=== PATIENT | male | born 1965 | race Caucasian/White ===

== ENCOUNTER → 2018-06-05 | Outpatient (CLI) | payer SELFPAY ==
[~2018-06-05] MED LIST: ASPIRIN EC81 M1; CARVEDILOL6.25 MG; CARVEDILOL6.25 MG PO; CIPROFLOXACIN500 M1 PO; GREEN TEA1 EACH PO; HYDROCODON-ACE1 EACH PO; IBUPROFEN 600600 M1 PO; IBUPROFEN 800800 MG PO; INVANZ 1GM/NS 101 GM IV; LISINOPRIL5 MG PO; LORTAB PO; MEDROLDOSEPACK PO; NAPROSYN500 MG PO; NOHOMEMEDICATIONS; NORCO 5-325 TA1 EACH PO; PERCOCET 5-3251 EACH PO; PREDNISONE 5 MG5 M1; ULTRAM 50MG TAB50 MG PO; VICODIN 5-5001 EACH PO; ZOFRAN4 MG PO
== END ==
LOC: M.RAD 13:03
DX: M19.072 Primary osteoarthritis, left ankle and foot (principal); M19.071 Primary osteoarthritis, right ankle and foot; M79.89 Other specified soft tissue disorders; L53.9 Erythematous condition, unspecified; M43.17 Spondylolisthesis, lumbosacral region; G89.29 Other chronic pain

== ENCOUNTER → 2018-06-07 | Outpatient (CLI) | payer SELFPAY | LOC: M.MRI 06:56 | DX: M54.5 Low back pain (principal); M25.572 Pain in left ankle and joints of left foot; M25.472 Effusion, left ankle; M25.571 Pain in right ankle and joints of right foot; M25.471 Effusion, right ankle; M79.675 Pain in left toe(s); M79.89 Other specified soft tissue disorders; M79.674 Pain in right toe(s); M19.90 Unspecified osteoarthritis, unspecified site; M43.17 Spondylolisthesis, lumbosacral region; G89.29 Other chronic pain; I10 Essential (primary) hypertension ==

== ENCOUNTER → 2018-07-09 | Outpatient (CLI) | payer SELFPAY | LOC: M.ULTRA 10:43 | DX: N43.3 Hydrocele, unspecified (principal); N30.01 Acute cystitis with hematuria; Z87.440 Personal history of urinary (tract) infections ==

== ENCOUNTER → 2018-08-14 | Outpatient (CLI) | payer SELFPAY | LOC: M.CT 12:52 | DX: N20.0 Calculus of kidney (principal); N26.1 Atrophy of kidney (terminal); N39.0 Urinary tract infection, site not specified ==

== ENCOUNTER → 2018-12-06 | Outpatient (CLI) | payer MEDICAID, SELFPAY | LOC: M.RAD 13:07 | DX: M19.072 Primary osteoarthritis, left ankle and foot (principal); M19.071 Primary osteoarthritis, right ankle and foot; Z88.8 Allergy status to other drugs, medicaments and biological substances ==

== ENCOUNTER 2021-07-26 18:57 | Inpatient (IN) | payer OTHER, MEDICAID ==
[~2021-07-26] VITALS: Ht 180.3 cm; Wt 119.8 kg
[2021-07-26 18:58] VITALS: BP 129/74
[2021-07-26] MEDS ORDERED: PROTONIX 20 MG20 MG PO (19:05)
[2021-07-26] MEDS ORDERED: MIDODRINE HCL 55 M1 PO (19:05)
[2021-07-26] MEDS ORDERED: METRONIDAZOLE500 M4 PO (19:05)
[2021-07-26 19:48] LABS: HEMATOCRIT 34.4 % (42.0-52.0); HEMOGLOBIN 11.1 gm/dL (14.0-18.0); MCH 31.9 pg (26.0-34.0); MCHC 32.4 g/dL (28.0-37.0); MCV 98.3 fL (80.0-100.0); MPV 7.1 fl. (7.2-11.1); NUCLEATED RBCS 0 /100WBC; PLATELET COUNT* 238 thou/uL (150-400); RDW-CV 16.4 % (10.5-14.5); WBC 17.5 thou/uL (4.0-11.0)
[2021-07-26 19:57] LABS: CALCIUM 8.9 mg/dL (8.5-10.1); CREATININE 2.3 mg/dL (0.6-1.3); POTASSIUM 3.9 mmol/L (3.5-5.1)
[2021-07-26 20:01] LABS: ALBUMIN 2.4 g/dL (3.4-5.0); TOTAL BILIRUBIN 0.9 mg/dL (<0.1-1.0)
[2021-07-26 20:29] LABS: ABSOLUTE LYMPHOCYTES 0.5 thou/uL (0.8-5.3); ABSOLUTE MONOCYTES 0.9 thou/uL (0.0-1.2); ABSOLUTE NEUTROPHILS 16.1 thou/uL (1.6-8.1); PLATELET ESTIMATE ADEQUATE
[2021-07-26 20:31] LABS: LARGE PLATELETS OCCASIONAL
[2021-07-26 21:27] LABS: URINE BILIRUBIN NEGATIVE (Negative); URINE BLOOD 3+ (Negative); URINE CLARITY CLOUDY; URINE COLOR YELLOW; URINE GLUCOSE-RANDOM NEGATIVE (Negative); URINE KETONES NEGATIVE (Negative); URINE NITRITE-REFLEX NEGATIVE (Negative); URINE PROTEIN 3+ (Negative); URINE UROBILINOGEN 0.2 E.U./dl (0.2-1.0)
[2021-07-26 21:31] LABS: SQUAMOUS 4-10 Moderate /LPF (0-3); URINE LEUKOCYTES-REFLEX 3+ (Negative)
[2021-07-26 21:32] LABS: AMORPHOUS PHOSPHATES Moderate /LPF (None Seen); BACTERIA-REFLEX >30 Many /HPF (None Seen); CASTS None Seen /LPF (None Seen); URINE RBC 3-10 Few /HPF (0-2)
[2021-07-26 21:33] LABS: CRYSTALS None Seen /LPF (None Seen)
[2021-07-27] VITALS (18 sets, daily range): BP systolic 87–127; BP diastolic 40–79
[2021-07-27 08:27] LABS: ABSOLUTE LYMPHOCYTES 0.3 thou/uL (0.8-5.3); ABSOLUTE MONOCYTES 0.5 thou/uL (0.0-1.2); ABSOLUTE NEUTROPHILS 18.5 thou/uL (1.6-8.1); BASOPHILS 0.2 %; HEMATOCRIT 30.6 % (42.0-52.0); HEMOGLOBIN 9.4 gm/dL (14.0-18.0); LYMPHOCYTES 1.7 %; MCH 31.2 pg (26.0-34.0); MCHC 30.7 g/dL (28.0-37.0); MCV 101.6 fL (80.0-100.0); MONOCYTES 2.3 %; MPV 7.4 fl. (7.2-11.1); NUCLEATED RBCS 0 /100WBC; PLATELET COUNT* 207 thou/uL (150-400); POLYS 95.8 %; RBC 3.01 mil/uL (4.50-6.00); RDW-CV 17.1 % (10.5-14.5); WBC 19.3 thou/uL (4.0-11.0)
[2021-07-27 09:16] LABS: INR 1.2
--- NOTE | 2021-07-27 09:37 | EKG ---
[place] [address] ELECTROCARDIOGRAM REPORT Name: KADEN PINEDA V Room: [place] [address] ADM IN ..#: [id number] Admission: 07/26/21 Attend Phys: Sagrario Clayton Discharge: Date of : 65 Date of Service: 07/26/21 1900 Report #: [id number] THIS REPORT FOR: //name// [facility] ED Test Date: 2021-07-26 Test Time: 19:00:13 Pat Name: KADEN PINEDA Department: Room: [facility] Gender: M String Studies Director: [place] : 1965 Requested By: Gudelia Mays Order Number: [id number] MD: Israel Vazquez Measurements Intervals [place] Rate: 121 P: -30 AR: 120 QRS: -39 QRSD: 73 T: 132 QT: 348 QTc: 494 Interpretive Statements Sinus tachycardia ST segment depression Abnormal R-wave progression, early transition Inferior infarct, old Baseline wander in lead(s) V3 Compared to ECG 01/09/2013 22:23:38 Myocardial infarct finding now present Sinus rhythm no longer present Left-axis deviation no longer present st segment depression now noted Electronically Signed On 07-27-2021 9:37:34 VENEER [employer]AP[employer] by Israel Vazquez [email or web address] <ELECTRONICALLY SIGNED> By: Israel Vazquez MD, [facility] 07/27/21 0937 99 99 Israel Vazquez MD, [facility] /EPI
[2021-07-27 10:01] LABS: CREATININE 2.2 mg/dL (0.6-1.3); POTASSIUM 4.6 mmol/L (3.5-5.1); TOTAL BILIRUBIN 0.5 mg/dL (<0.1-1.0); TOTAL PROTEIN 5.9 g/dL (6.4-8.2)
--- NOTE | 2021-07-27 16:53 | NUR ---
PT ADMITTED TO ICU FROOM IR. PT HAS BILAT NEPHROSTOMY DRAINS WITH TH RIGHT DRAINING BLOODY URINE. PT IS ON OXYGEN VIA NC. PT ORIENTED TO ROOM AND UNIT, BED LOW AND LOCKED, SIDE RAILS UP X3, CALL LIGHT IN REACH. MOTHER AT BEDSIDE. WILL CONTINUE TO ASSESS.
--- NOTE | 2021-07-27 19:03 | NUR ---
BEDSIDE REPORT GIVEN TO WILL RN.
[2021-07-28] VITALS (45 sets, daily range): BP systolic 73–113; BP diastolic 42–72
[2021-07-28 03:45] LABS: ABSOLUTE BASOPHILS 0.1 thou/uL (0.0-0.2); ABSOLUTE LYMPHOCYTES 0.3 thou/uL (0.8-5.3); ABSOLUTE MONOCYTES 0.3 thou/uL (0.0-1.2); ABSOLUTE NEUTROPHILS 13.2 thou/uL (1.6-8.1); BASOPHILS 0.4 %; EOSINOPHILS 0.1 %; HEMATOCRIT 25.9 % (42.0-52.0); HEMOGLOBIN 7.9 gm/dL (14.0-18.0); LYMPHOCYTES 2.2 %; MCH 31.7 pg (26.0-34.0); MCHC 30.6 g/dL (28.0-37.0); MCV 103.5 fL (80.0-100.0); MONOCYTES 2.2 %; MPV 7.3 fl. (7.2-11.1); NUCLEATED RBCS 0 /100WBC; PLATELET COUNT* 135 thou/uL (150-400); POLYS 95.1 %; RDW-CV 17.4 % (10.5-14.5); WBC 13.9 thou/uL (4.0-11.0)
[2021-07-28 03:57] LABS: CALCIUM 7.6 mg/dL (8.5-10.1); CREATININE 2.8 mg/dL (0.6-1.3); POTASSIUM 4.7 mmol/L (3.5-5.1)
--- NOTE | 2021-07-28 17:09 | NUR ---
Met with patient at bedside and introduced role of CM. Prior to admission, patient was living at home in a house with his mother and brother. Stairs in the home but patient verbalizes no difficulty using stairs, however patient states that sometimes when his back hurts really bad, using stairs can be challenging. Patient states he has a walker, but rarely uses it. Only uses it when needed. Patient was independent with ADLS and was driving. No hx of O2, bipap/cpap, HH, SNF, dialysis, infusion therapy or BHS. Hx of ARU at [place]. Hx of bladder CA. PCP is Rosy Barrow. No DPOA. Patient states that he and his mom are disucussing DPOA and wishes to not complete it at this time. Patient states he feels safe to return home. Plan of care: Currently on 2L NC. S/P Nephroureteral stent 07/27 with nephrostomy tubes. Continue abx. Per physician, patient is tele status and could downgrade to tele. Therapies will need to be ordered for dc dispo. Paitent open to HH if needed. CM to continue to follow
[2021-07-29 03:22] VITALS: BP 80/52
--- NOTE | 2021-07-29 03:44 | NUR ---
PT ALERT ORIENTED. R AND L NEPHROSOTOMY DRAINING ADEQUATE AMOUNTS. UROSTOMY WITH LESS OP THAN NEPHROSOMY. HYDROCODONE FOR PAIN. PUBLICATION DIRECTOR TRACING SR PVC. L CHEST PORT IN PLACE NOT ACCESSED.
[2021-07-29 06:18] LABS: ABSOLUTE EOSINOPHILS 0.1 thou/uL (0.0-0.7); ABSOLUTE LYMPHOCYTES 0.4 thou/uL (0.8-5.3); ABSOLUTE MONOCYTES 0.2 thou/uL (0.0-1.2); ABSOLUTE NEUTROPHILS 8.5 thou/uL (1.6-8.1); BASOPHILS 0.4 %; EOSINOPHILS 0.9 %; HEMATOCRIT 25.3 % (42.0-52.0); HEMOGLOBIN 8.1 gm/dL (14.0-18.0); LYMPHOCYTES 4.4 %; MCH 32.3 pg (26.0-34.0); MCV 100.8 fL (80.0-100.0); MONOCYTES 2.6 %; MPV 7.3 fl. (7.2-11.1); NUCLEATED RBCS 0 /100WBC; PLATELET COUNT* 117 thou/uL (150-400); POLYS 91.7 %; RBC 2.51 mil/uL (4.50-6.00); WBC 9.2 thou/uL (4.0-11.0)
[2021-07-29 06:30] VITALS: BP 82/52
[2021-07-29 06:31] LABS: ALBUMIN 1.5 g/dL (3.4-5.0); CALCIUM 7.8 mg/dL (8.5-10.1); POTASSIUM 4.1 mmol/L (3.5-5.1); TOTAL BILIRUBIN 0.3 mg/dL (<0.1-1.0); TOTAL PROTEIN 5.2 g/dL (6.4-8.2)
[2021-07-29 08:30] VITALS: BP 118/61
[2021-07-29 16:00] VITALS: BP 122/65
--- NOTE | 2021-07-29 16:41 | NUR ---
PLAN OF CARE: PHYSICIAN INFORMS OF PLAN TO INITIATE TRANSFER TO [facility] FOR THE PT, PT SEES A UROLOGIST AT THAT FACILITY. PT'S UROLOGIST: DR ALY NGUYEN. CM SPOKE TO [facility] [place] TEAM (BILL) TO INITIATE TX. CM INFORMED BILL TO F/U WITH RN IN-CHARGE OF THE PT OR [facility] TO INFORM OF ABILITY TO ACCEPT OR DECLINE PT, AND CM PROVIDED CONTACT INFO FOR BOTH. CM WILL REMAIN AVAILABLE TO ASSIST AND FOLLOW NEEDED. [employer] [facility] [place] PHONE: [phone] FAX: [phone]
[2021-07-29 20:00] VITALS: BP 100/59
[2021-07-30 01:17] VITALS: BP 90/52
--- NOTE | 2021-07-30 03:19 | NUR ---
PT LETHARGIC AROUSES EASILY. TURN Q 2 HRS. NEPHROSTOMY TUBES LEFT DRAINING RED, RIGHT DRAINING PURULENT PINK. ILLIOSTOMY DRAINING RED. O2 AT 2 LITERS. OCCASSIONALY SNORES. HYDROCODONE GIVEN FOR BACK PAIN. NS AT 80MLS/HR.
[2021-07-30 06:24] VITALS: BP 90/52
[2021-07-30 08:00] VITALS: BP 104/50
[2021-07-30 11:39] LABS: ABSOLUTE EOSINOPHILS 0.1 thou/uL (0.0-0.7); ABSOLUTE LYMPHOCYTES 0.4 thou/uL (0.8-5.3); ABSOLUTE MONOCYTES 0.3 thou/uL (0.0-1.2); ABSOLUTE NEUTROPHILS 4.2 thou/uL (1.6-8.1); BASOPHILS 0.3 %; EOSINOPHILS 1.5 %; LYMPHOCYTES 7.4 %; MCH 32.1 pg (26.0-34.0); MCV 100.3 fL (80.0-100.0); MONOCYTES 6.7 %; MPV 8.2 fl. (7.2-11.1); NUCLEATED RBCS 0 /100WBC; PLATELET COUNT* 118 thou/uL (150-400); POLYS 84.1 %; RBC 2.49 mil/uL (4.50-6.00); RDW-CV 16.9 % (10.5-14.5)
[2021-07-30 12:00] VITALS: BP 96/39
[2021-07-30 12:00] LABS: ALBUMIN 1.4 g/dL (3.4-5.0); CALCIUM 7.8 mg/dL (8.5-10.1); CREATININE 2.8 mg/dL (0.6-1.3); POTASSIUM 4.2 mmol/L (3.5-5.1); TOTAL BILIRUBIN 0.2 mg/dL (<0.1-1.0); TOTAL PROTEIN 5.1 g/dL (6.4-8.2)
[2021-07-30 16:00] VITALS: BP 89/49
--- NOTE | 2021-07-30 16:54 | NUR ---
NO ACUTE CHANGES THIS SHIFT. CONTINUE PLAN OF CARE.
--- NOTE | 2021-07-30 18:32 | NUR ---
THIS RN CALLED [facility] TRANSFER TEAM. STATED THEY WERE NOT ABLE TO GET AHOLD OF PHYSICIAN (HOSPITALIST) YESTERDAY AND THUS TRANSFER PROCESS HAS NOT BEEN SENT TO UTILIZATION REVIEW YET. UTILIZATION REVIEW NEEDS: H&P PROGRESS NOTES CONSULT NOTES ALL TO BE SENT TOMORROW FOR REVIEW Sunday BY UTILIZATIO REVIEW AT [facility].
[2021-07-31 01:46] VITALS: BP 122/57
[2021-07-31 04:50] LABS: ABSOLUTE EOSINOPHILS 0.1 thou/uL (0.0-0.7); ABSOLUTE LYMPHOCYTES 0.6 thou/uL (0.8-5.3); ABSOLUTE MONOCYTES 0.4 thou/uL (0.0-1.2); ABSOLUTE NEUTROPHILS 3.3 thou/uL (1.6-8.1); BASOPHILS 0.5 %; EOSINOPHILS 1.6 %; HEMATOCRIT 24.6 % (42.0-52.0); HEMOGLOBIN 7.8 gm/dL (14.0-18.0); LYMPHOCYTES 13.3 %; MCH 31.7 pg (26.0-34.0); MCHC 31.9 g/dL (28.0-37.0); MCV 99.4 fL (80.0-100.0); MPV 8.1 fl. (7.2-11.1); NUCLEATED RBCS 0 /100WBC; PLATELET COUNT* 117 thou/uL (150-400); POLYS 74.6 %; RBC 2.47 mil/uL (4.50-6.00); RDW-CV 16.4 % (10.5-14.5); WBC 4.4 thou/uL (4.0-11.0)
[2021-07-31 04:57] LABS: PREALBUMIN 9.6 mg/dL (18.0-35.7)
[2021-07-31 05:07] LABS: ALBUMIN 1.4 g/dL (3.4-5.0); CALCIUM 8.1 mg/dL (8.5-10.1); CREATININE 2.4 mg/dL (0.6-1.3); POTASSIUM 4.1 mmol/L (3.5-5.1); TOTAL BILIRUBIN 0.2 mg/dL (<0.1-1.0)
[2021-07-31 06:28] VITALS: BP 103/68
--- NOTE | 2021-07-31 07:20 | NUR ---
CHANGE OF SHIFT REPORT GIVEN PATIENT SEEN AT BEDSIDE, IN BED ASLEEP ASSUMED PATIENT CARE
[2021-07-31 08:00] VITALS: BP 124/62
[2021-07-31 12:00] VITALS: BP 109/71
[2021-07-31 16:00] VITALS: BP 111/68
[2021-07-31 20:00] VITALS: BP 124/68
[2021-08-01 00:01] VITALS: BP 135/75
[2021-08-01 03:47] VITALS: BP 127/76
[2021-08-01 08:38] VITALS: BP 129/80
[2021-08-01 12:00] VITALS: BP 115/75
[2021-08-01 15:00] LABS: ABSOLUTE EOSINOPHILS 0.1 thou/uL (0.0-0.7); ABSOLUTE LYMPHOCYTES 0.6 thou/uL (0.8-5.3); ABSOLUTE MONOCYTES 0.5 thou/uL (0.0-1.2); ABSOLUTE NEUTROPHILS 3.5 thou/uL (1.6-8.1); BASOPHILS 0.4 %; EOSINOPHILS 1.4 %; HEMATOCRIT 27.5 % (42.0-52.0); HEMOGLOBIN 8.9 gm/dL (14.0-18.0); LYMPHOCYTES 13.6 %; MCH 31.6 pg (26.0-34.0); MCHC 32.3 g/dL (28.0-37.0); MCV 97.8 fL (80.0-100.0); MONOCYTES 10.8 %; MPV 8.3 fl. (7.2-11.1); NUCLEATED RBCS 0 /100WBC; PLATELET COUNT* 146 thou/uL (150-400); POLYS 73.8 %; RBC 2.81 mil/uL (4.50-6.00); RDW-CV 16.6 % (10.5-14.5); WBC 4.7 thou/uL (4.0-11.0)
[2021-08-01 15:05] LABS: CALCIUM 8.1 mg/dL (8.5-10.1); POTASSIUM 3.7 mmol/L (3.5-5.1)
[2021-08-01 15:10] LABS: ALBUMIN 1.7 g/dL (3.4-5.0); TOTAL BILIRUBIN 0.4 mg/dL (<0.1-1.0); TOTAL PROTEIN 5.5 g/dL (6.4-8.2)
[2021-08-01 16:00] VITALS: BP 126/81
--- NOTE | 2021-08-01 17:02 | NUR ---
PLAN OF CARE: PHYSICIAN INFORMS OF PLAN FOR THE PT TO D/C TO SNF PENDING ACCEPTANCE AND INSURANCE AUTH. PT INFORMS OF CHOICE OF [facility] FOR SNF. CM ATTEMPTED TO CONTACT [facility] TO DISCUSS SNF AND ABILITY TO ACCEPT PT AT D/C, I NEED TO CONFIRM IF [facility] HAS SNF ABILITY VS ACUTE REHAB OR LTC. CM NEEDS TO CLARIFY THIS WITH [facility]. CM WILL REMAIN AVAILABLE TO ASSIST AND FOLLOW NEEDED.
[2021-08-01 20:44] VITALS: BP 138/70
[2021-08-02 01:49] VITALS: BP 119/70
[2021-08-02 04:47] LABS: ABSOLUTE EOSINOPHILS 0.1 thou/uL (0.0-0.7); ABSOLUTE LYMPHOCYTES 0.8 thou/uL (0.8-5.3); ABSOLUTE MONOCYTES 0.5 thou/uL (0.0-1.2); ABSOLUTE NEUTROPHILS 2.8 thou/uL (1.6-8.1); BASOPHILS 0.4 %; HEMOGLOBIN 8.8 gm/dL (14.0-18.0); LYMPHOCYTES 18.6 %; MCHC 33.6 g/dL (28.0-37.0); MCV 98.1 fL (80.0-100.0); MONOCYTES 12.3 %; MPV 8.3 fl. (7.2-11.1); NUCLEATED RBCS 0 /100WBC; PLATELET COUNT* 139 thou/uL (150-400); POLYS 66.7 %; RBC 2.65 mil/uL (4.50-6.00); RDW-CV 16.6 % (10.5-14.5); WBC 4.3 thou/uL (4.0-11.0)
[2021-08-02 05:10] LABS: ALBUMIN 1.7 g/dL (3.4-5.0); CALCIUM 8.4 mg/dL (8.5-10.1); CREATININE 1.8 mg/dL (0.6-1.3); POTASSIUM 3.5 mmol/L (3.5-5.1); TOTAL BILIRUBIN 0.4 mg/dL (<0.1-1.0); TOTAL PROTEIN 5.5 g/dL (6.4-8.2)
[2021-08-02 06:11] VITALS: BP 131/85
--- NOTE | 2021-08-02 07:01 | NUR ---
PT IS ABLE TO COMMUNICATE HIS NEEDS TO STAFF WITH MINOR DIFFICULTY; HE CAN BE DROWSY AND A LITTLE CONFUSED AT TIMES. CURRENT PAIN MEDICATION REGIMEN HAS BEEN ADEQUATE FOR CONTROLLING HIS PAIN UP TO THIS TIME. CONTACT [facility] FOR [facility] MAINTIANED. R+L NEPHROSTOMY TUBES AND RT ABD UROSTOMY PATENT UP TO THIS TIME.
--- NOTE | 2021-08-02 07:05 | NUR ---
CHANGE OF SHIFT REPORT GIVEN PATIENT SEEN AT BEDSIDE, IN BED RESTING ASSUMED PATIENT CARE
[2021-08-02 08:00] VITALS: BP 134/78
[2021-08-02 11:41] VITALS: BP 109/65
--- NOTE | 2021-08-02 13:38 | NUR ---
PLAN OF CARE: PHYSICIAN INFORMS THAT THE PT IS MEDICALLY STABLE FOR D/C TO SNF. PT INITIALLY CHOSE [facility] SNF. HOWEVER AT THIS TIME [facility] HAVE BED AVAILABILITY. CM PROVIDED PT WITH SNF LIST. PT CHOSE [facility] SN[facility]. THEY ALSO DO NOT HAVE BED AVAILABILITY AT THIS TIME, BUT OFFERED TO SEND REFERRAL TO [facility]. CM TO SPEAK TO PT TO DISCUSS THIS. CM WILL REMAIN AVAILABLE TO ASSIST AND FOLLOW NEEDED.
[2021-08-02 16:00] VITALS: BP 112/77
[2021-08-02 20:39] VITALS: BP 126/60
[2021-08-03] VITALS: BP 107/62
[2021-08-03 04:00] VITALS: BP 119/72
[2021-08-03 05:37] LABS: CALCIUM 8.1 mg/dL (8.5-10.1); CREATININE 1.7 mg/dL (0.6-1.3); MAGNESIUM 1.8 mg/dL (1.8-2.4); POTASSIUM 3.5 mmol/L (3.5-5.1)
--- NOTE | 2021-08-03 07:56 | NUR ---
PT IS ABLE TO COMMUNICATE HIS NEEDS TO STAFF WITH MINOR DIFFICULTY; HE IS [id number]-[id number] AND LETHARGIC AT TIMES. CURRENT PAIN MEDICATION REGIMEN HAS BEEN ADEQUATE FOR CONTROLLING HIS PAIN UP TO 0700 THIS MORNING. UROSTOMY AND BOTH NEPHROSTOMY TUBES HAVE BEEN PATENT UP TO 0700 TODAY. POSSIBLE DISCHARGE TO SNF SOON.
[2021-08-03 12:33] VITALS: BP 105/69
[2021-08-03] MEDS ORDERED: HYDROCODON-ACE1 EAC7 PO (15:18)
--- NOTE | 2021-08-03 17:22 | NUR ---
PLAN FOR THE PT TO D/C TO SNF AT [facility] TODAY. TRANSPORT ARRANGED. PT AND HIS MOTHER IN AGREEMENT WITH THE PLAN. RN TO CALL REPORT. CM WILL REMAIN AVAILABLE TO ASSIST AND FOLLOW NEEDED. [facility] PHONE: [phone]
== END 2021-08-03 15:27 | DRG 871 ==
LOC: M.ERS 18:57 → M.2W 21:04 → M.TBA-ER 21:04 → M.2W 07-27 16:03 → M.ICU 07-27 16:08 → M.2W 07-28 19:00
PROVIDERS: Internal Medicine; Internal Medicine Nephrology; Nurse Practitioner Family; Physician Assistant; ADMIT Internal Medicine; ATTEND Internal Medicine
PROC: BT141ZZ Fluoroscopy of Kidneys, Ureters and Bladder using Low Osmolar Contrast (ICD-10-PCS; principal; 2021-07-27)
PROC: 0T9430Z Drainage of Left Kidney Pelvis with Drainage Device, Percutaneous Approach (ICD-10-PCS; principal; 2021-07-27)
PROC: 0T9330Z Drainage of Right Kidney Pelvis with Drainage Device, Percutaneous Approach (ICD-10-PCS; principal; 2021-07-27)
PROC: 05HY33Z Insertion of Infusion Device into Upper Vein, Percutaneous Approach (ICD-10-PCS; 2021-08-01)
DX: A41.51 Sepsis due to Escherichia coli [E. coli] (principal); N17.0 Acute kidney failure with tubular necrosis; N13.6 Pyonephrosis; E87.2 Acidosis; Z16.12 Extended spectrum beta lactamase (ESBL) resistance; Z20.822 Contact with and (suspected) exposure to COVID-19; K21.9 Gastro-esophageal reflux disease without esophagitis; I12.9 Hypertensive chronic kidney disease with stage 1 through stage 4 chronic kidney disease, or unspecified chronic kidney disease; I95.89 Other hypotension; D64.9 Anemia, unspecified; D69.6 Thrombocytopenia, unspecified; N18.9 Chronic kidney disease, unspecified; Z85.51 Personal history of malignant neoplasm of bladder; Z79.899 Other long term (current) drug therapy

== ENCOUNTER → 2021-09-13 | Outpatient (CLI) | payer OTHER, MEDICAID ==
[~2021-09-13] MED LIST changes: +HYDROCODON-ACE1 EAC7 PO; +METRONIDAZOLE500 M4 PO; +MIDODRINE HCL 55 M1 PO; +PROTONIX 20 MG20 MG PO
== END ==
LOC: M.RAD 14:07
PROVIDERS: ATTEND Urology
DX: N20.1 Calculus of ureter (principal); Z93.6 Other artificial openings of urinary tract status